=== PATIENT | male | born 1980 | race Caucasian/White ===

== ENCOUNTER → 2017-09-28 | Outpatient (CLI) | payer BC ==
[~2017-09-28] MED LIST: MULTI VITAMINS1 TAB PO
== END ==
LOC: COL.RAD 09:38
DX: M43.06 Spondylolysis, lumbar region (principal); M51.17 Intervertebral disc disorders with radiculopathy, lumbosacral region

== ENCOUNTER 2018-04-12 18:32 | Emergency (ER) | payer BC ==
[~2018-04-12] VITALS: Ht 185.4 cm; Wt 81.8 kg
[2018-04-12 18:41] VITALS: TEMP 98.6
[2018-04-12] MEDS ORDERED: LEVOXYL0.075 MG PO (18:50)
[2018-04-12] MEDS ORDERED: NORCO 325 MG-51 TAB PO (19:34)
[2018-04-12 20:00] VITALS: BP 131/77; PULSE 60
== END 2018-04-12 20:00 | disposition home or self-care (01) ==
LOC: COL.ER 18:32
DX: S62.201A Unspecified fracture of first metacarpal bone, right hand, initial encounter for closed fracture (principal); E03.9 Hypothyroidism, unspecified; F17.220 Nicotine dependence, chewing tobacco, uncomplicated; W22.8XXA Striking against or struck by other objects, initial encounter; Y92.009 Unspecified place in unspecified non-institutional (private) residence as the place of occurrence of the external cause
CPT/HCPCS: Q4021